=== PATIENT | female | born 1990 | race Caucasian/White ===

== ENCOUNTER 2020-08-10 11:59 | Emergency (ER) | payer BC, SELFPAY ==
--- NOTE | 2020-08-10 11:57 | ECG_ITS ---
APPROVED REPORT Exam: Resting ECG HR:118 bpm ECG Measurements Heart Rate 118 AXES NC 120 P 58 QRSd 76 QRS 50 QT 306 T 54 QTc 428 Conclusion Sinus tachycardia Otherwise normal ECG Electronically signed by : Cristóbal Willis, 08/11/2020 07:39:08
[2020-08-10 12:00] VITALS: BP 174/95; PULSE 86; RESP 19; TEMP 37.2; O2SAT 97; BMI 25.0
--- NOTE | 2020-08-10 12:04 | [facility].EDCP ---
ED Disposition Clinical Impression: Palpitations Chest pain Qualifiers: Chest pain type: unspecified Qualified Code(s): R07.9 - Chest pain, unspecified Disposition: Home, Self-Care Condition on Discharge: Good Referrals: PCP,No [Primary Care Provider] - 3 days - Critical Care Critical Care Time: No Attestation: On , the high probability of a clinically significant, sudden or life threatening deterioration of the following system(s) required my full and direct attention, intervention and personal management. The time I documented below is in addition to time spent performing reported procedures but includes the following listed in this critical care notation. Medical Decision Making - Lanre Inquiry Pt receiving controlled substance: No Vital Signs: 08/10/20 12:00 Temperature 99.0 F Temperature Source Oral Pulse Rate [Left Radial] 86 Respiratory Rate 19 Blood Pressure [Right Arm] 174/95 H Blood Pressure Mean [Right Arm] 121 Blood Pressure Source [Right Arm] Automatic Cuff Blood Pressure Position [Right Arm] Sitting 02 Sat by Pulse Oximetry 97 Oxygen Delivery Method Room Air - Lab Data Lab Results 08/10/20 12:00: Troponin I < 0.01 08/10/20 12:00: WBC 9.2, RBC 5.28, Hgb 16.0, Hct 47.3 H, MCV 89.7, MCH 30.3, MCHC 33.8, RDW 12.6, Plt Count 363, MPV 7.1 L, Neut % (Auto) 73.0, Lymph % (Auto) 22.2, Elbert % (Auto) 3.9, Eos % (Auto) 0.4, Baso % (Auto) 0.5, Neut # (Auto) 6.8, Lymph # (Auto) 2.1, Elbert # (Auto) 0.4, Eos # (Auto) 0.0, Baso # (Auto) 0.1 08/10/20 12:00: Sodium 139, Potassium 3.5, Chloride 105, Carbon Dioxide 24, Anion Gap 13.5, BUN 11, Creatinine 0.80, Estimated Creat Clear 134, Estimated GFR 83, Est GFR ( Amer) 101, Glucose 116 H, Calcium 9.9 Result diagrams: 08/10/20 12:00 08/10/20 12:00 - ECG Data Tracing #1 Sinus tachycardia, 118 bpm, no ST elevation or depression, no ectopy, nml intervals Medical Decision Narrative: 30yo F evaluated for palpitations and chest pain. Patient is young otherwise healthy female. ACS/MA is unlikely. EKG shows tachycardia without other remarkable finding. Troponin and other labs are negative. Patient has known history of anxiety. Discussed with patient she would likely benefit from a Holter/event monitor to rule out any arrhythmia and then possibly starting on low-dose beta-haley. Patient is to follow-up with PCP next week. Chest Pain HPI - General Stated Complaint: palpitations Time Seen by Provider: 08/10/20 12:04 Mode of Arrival: Ambulatory Source of Information: Patient - History of Present Illness HPI narrative: 30yo F with past medical history significant anxiety presents to the ER secondary to chest pain. Patient reports her pain is more of a pressure sensation, substernal. Started several days ago and is waxed and waned since that time. Also notes she has had tachycardia. Patient has an at home health monitor that gives her her blood pressure and heart rate. She reports the other day when this occurred, resting in a bathtub improved her symptoms. She reports mild shortness of breath. She denies any radiating pain, nausea/vomiting. She does endorse anorexia over the past several days. She denies fever, cough. Denies any recent known sick contact. Denies any significant family medical history for cardiac disease. Treatments prior to or on arrival for Cardiac Chest Pain: aspirin - Related Data On Oral Contraceptives: Yes Home Medications Medication Instructions Recorded Confirmed levonorgestrel 20 mcg/24 hours (6 INTRAUTERI each 06/14/19 06/26/20 yrs) 52 mg intrauterine device Allergies Allergy/AdvReac Type Severity Reaction Status Date / Time No Known Drug Intolerances Allergy Unknown NA Verified 06/26/20 09:29 [facility] History - Hepatitis A Screen Drug use history?: No Attestation statement:: This patient has been screened for Hepatitis A risk factors. I have reviewed the patient's past medical hist
[2020-08-10 12:41] LABS: Chloride 105 mmol/L (98-107); Potassium 3.5 mmoL/L (3.5-5.1); Sodium 139 mmol/L (136-145)
[2020-08-10 12:43] LABS: Basophils # 0.1 K/mm3 (0-0.2); Basophils % 0.5 % (0.1-2.0); Eosinophils % 0.4 % (0.1-12.0); Hematocrit 47.3 % (37.0-47.0); Lymphocytes # 2.1 K/mm3 (0.7-4.5); Lymphocytes % 22.2 % (10-50); Mean Corpuscular HGB Conc 33.8 g/dL (31.8-35.4); Mean Corpuscular Hemoglobin 30.3 pg (27.0-31.2); Mean Corpuscular Volume 89.7 fl (81-99); Mean Platelet Volume 7.1 fl (7.4-10.4); Monocytes # 0.4 K/mm3 (0.1-1.0); Monocytes % 3.9 % (1.7-9.3); Neutrophils # 6.8 K/mm3 (1.8-7.8); Platelet Count 363 K/mm3 (142-424); Red Blood Count 5.28 M/mm3 (4.20-5.40); Red Cell Distribution Width 12.6 % (11.5-17.5); White Blood Count 9.2 K/mm3 (4.8-10.8)
[2020-08-10 12:44] LABS: Blood Urea Nitrogen 11 mg/dl (7-17); Creatinine Clearance Estimated 134 mL/min (50-200); Estimated Glomerular Filt Rate 83 ml/min (>60); GFR (African American) 101 ML/MIN (>60)
[2020-08-10 12:45] LABS: Anion Gap 13.5 mEq/L (5-15); Calcium 9.9 mg/dl (8.4-10.2); Carbon Dioxide 24 mmol/L (22.0-30.0); Glucose 116 mg/dl (74-100); Troponin I < 0.01 ng/ml (0.00-0.034)
[2020-08-10 13:37] VITALS: BP 145/73; PULSE 77; RESP 12; TEMP 37.2; O2SAT 97
== END 2020-08-10 13:38 | disposition home or self-care (01) ==
PROVIDERS: Emergency Provider Family Medicine
DX: R00.2 Palpitations (principal); R07.9 Chest pain, unspecified; F41.9 Anxiety disorder, unspecified
CPT/HCPCS: 80048; 84484; 85025; 93005; 99282

== ENCOUNTER → 2020-08-16 10:08 | Outpatient (CLI) | payer BC, SELFPAY ==
--- NOTE | 2020-08-16 10:20 | CA_ITS ---
APPROVED REPORT EXAM: Comprehensive 2D, Doppler, and color-flow Echocardiogram Gaming Manager: Samanta Ames RT(R) Ht: 6 ft 0 in Wt: 185lbs BSA: 2.06 BP: 174/95 mmHg Indications: CP, chest tightness, arrhythmia noted by patient, SOB, recently started on a beta haley 2D Dimensions LVOT 2.09 cm (M/F) 1.5-2.5 M-Mode Dimensions RVDd 2.72 cm (0.9-2.6) LA Diam 3.48 cm (1.9-4.0) LVDd 4.01 cm (3.5-5.7) Ao Diam 2.65 cm (2.0-3.7) LVDs 3.15 cm (3.5-5.7) IVSd 0.82 cm (0.6-1.1) PWd 0.89 cm (0.6-1.1) EF (Teich) 44.00% FS 21.40% EDV (Teich) 70.40 mL ESV (Teich) 39.40 mL LV Diastology E Decel Time 190.00 (160-240 msec) E/A Ratio 1.8 MED E' 11.90 (< 7 cm/sec) E'/MED E' Ratio 7.36 (>14) LAT E' 18.00 (<10 cm/sec) E/LAT E' Ratio 4.87 (>14) Mitral Valve MV E Max Chetan. 88.00 (40-130 cm/s) MV A Velocity 48.00 (40-130 cm/s) E/A Ratio 1.81 MV Decel. Time 190.00 (160-240 ms) MV PHT 56.00 ms Left Ventricle Left atrium is normal size, left ventricle is normal size, there is no concentric left ventricular hypertrophy, visually estimated ejection fraction 55% with no regional wall motion abnormality. Diastolic parameters are within normal range. Right Ventricle Right atrium and right ventricle are normal size and contractility. Aortic Valve Aortic valve is grossly normal. There is no aortic stenosis or aortic insufficiency. Mitral Valve Mitral valve is grossly normal, there is trace mitral regurgitation. Tricuspid Valve Tricuspid valve grossly normal, there is trace tricuspid regurgitation, tricuspid regurgitation jet velocity is inadequate for calculation of the right ventricular systolic pressure. Pulmonic Valve Pulmonic valve is poorly visualized. Great Vessels Aortic root is normal size. Pericardium No significant pericardial effusion noted. Conclusion 1. Normal left ventricular size, preserved left ventricular systolic function, visually estimated ejection fraction 55% with no regional wall motion abnormality, diastolic parameters are within normal range. 2. Trace mitral and tricuspid regurgitation. 3. No significant pericardial effusion noted. Electronically signed by : Jaret Magana, 08/17/2020 12:04:55
== END ==
PROVIDERS: PCP Internal Medicine Adolescent Medicine; Visit Provider Internal Medicine Adolescent Medicine
DX: R00.2 Palpitations (principal)
CPT/HCPCS: 93306